=== PATIENT | male | born 1960 | race Caucasian/White ===

== ENCOUNTER 2017-12-23 03:37 | Emergency (ER) | payer BC ==
[~2017-12-23] VITALS: Ht 182.9 cm; Wt 109.3 kg
[2017-12-23 03:55] LABS: BILIRUBIN,URINE NEGATIVE (NEGATIVE); UROBILINOGEN,URINE NORMAL (NEGATIVE)
--- NOTE | 2017-12-23 03:55 | NUR ---
URINE COLLECTED AND TAKEN TO LAB
--- NOTE | 2017-12-23 03:58 | ER.PDOC ---
General Chief Complaint: Flank Pain Stated Complaint: POSS KIDNEY STONE Time seen by MD: 03:57 Source: patient Exam Limitations: no limitations History of Present Illness Initial Comments Left flank pain Timing/Duration: 1-3 hours Severity/Quality: moderate, sharpness Radiation: no radiation Associated Symptoms: denies symptoms Exacerbated by: nothing Relieved By: nothing Allergies: Coded Allergies: No Known Allergies (Unverified , 12/23/17) Vital Signs First Vital Signs Date Time Temp Pulse Resp B/P (MAP) Pulse Ox O2 Delivery O2 Flow Rate FiO2 12/23/17 03:47 97.9 55 16 96 Last Vital Signs Date Time Temp Pulse Resp B/P (MAP) Pulse Ox O2 Delivery O2 Flow Rate FiO2 12/23/17 03:50 97.9 12/23/17 03:47 55 16 96 Past Medical History Medical History: high cholesterol, hypertension, vascular disease Surgical History: knee Social History Smoking: non-smoker Alcohol Use: none Drug Use: none Constitutional: no symptoms reported Respiratory: no symptoms reported Cardiovascular: no symptoms reported Gastrointestinal: see HPI Genitourinary: no symptoms reported All Other Systems: Reviewed and Negative Physical Exam General Appearance: No Apparent Distress, WD/WN HEENT: PERRL/EOMI, Normal ENT Inspection, TMs Normal, Pharynx Normal Neck: Non-Tender, Full Range of Motion, Supple, Normal Inspection Respiratory: chest non-tender, lungs clear, normal breath sounds, no respiratory distress, no accessory muscle use Cardiovascular: Normal Peripheral Pulses, Regular Rate, Rhythm, No Edema, No Gallop, No JVD, No Murmur Gastrointestinal: Normal Bowel Sounds, Non Tender, Soft Back: Normal Inspection, No CVA Tenderness Extremities: Normal Range of Motion, Non-Tender, Normal Inspection, No Pedal Edema, No Calf Tenderness, Normal Capillary Refill, Pelvis Stable Neurologic/Psychiatric: leasing machine tender II-XII NML as Tested, No Motor/Sensory Deficits, Alert, Normal Mood/Affect, Oriented x 3 Skin: Normal Color, Warm/Dry EKG/XRAY/CT/US CT Comments: 4.4 mm left UVJ stone Course Blood Pressure Systolic: 133 Blood Pressure Diastolic: 80 Blood Pressure Mean: 97 Departure Time of Disposition: 04:42 Disposition: 01 HOME, SELF-CARE Impression: Primary Impression: Ureteral calculus, left Additional Impression: UTI (urinary tract infection) Condition: Stable Referrals: PCP,UNKNOWN (PCP) PRIMARY CARE PROVIDER Additional Instructions: Tylenol #3 Cipro Continue Flomax F/U with Dr. Chavarria in 3-4 days if no improvement Duration or Time Spent with Pa: 60 mins Problem Qualifiers Additional Impression: UTI (urinary tract infection) Urinary tract infection type: site unspecified Hematuria presence: with hematuria Qualified Codes: N39.0 - Urinary tract infection, site not specified ; R31.9 - Hematuria, unspecified CASSANDRA GARCIA MD Dec 23, 2017 03:58
[2017-12-23 04:08] LABS: BASOPHIL % 0.5 % (0.0-0.2); EOSINOPHIL # 0.3 10^3/uL (0.0-0.2); EOSINOPHIL % 3.9 % (0.0-5.0); HEMOGLOBIN 13.2 g/dL (13.9-16.3); LYMPHOCYTES # 1.6 10^3/uL (1.0-4.8); LYMPHOCYTES % 21.5 % (24.0-44.0); MEAN CELL HGB 30.6 pg (26-34); MEAN CELL HGB CONCENTRATION 33.3 g/dL (33-37); MEAN CORP VOLUME 91.7 fL (78-100); MEAN PLATELET VOLUME 9.6 fL (7.8-11.0); MONOCYTES # 0.7 10^3/uL (0.3-0.8); MONOCYTES % 9.6 % (5.0-12.0); NEUTROPHIL # 4.8 10^3/uL (1.8-7.7); NEUTROPHILS % 64.2 % (41.0-85.0); WHITE BLOOD CELL 7.5 10^3/uL (4.5-11.0)
--- NOTE | 2017-12-23 04:09 | NUR ---
TO CT PATIENT TO CT VIA WHEELCHAIR WITH TENZIN,RAD
--- NOTE | 2017-12-23 04:12 | NUR ---
BACK FROM CT PATIENT BACK FROM CT, AT BEDSIDE. NO NEEDS VOICED BY PATIENT OR SPOUSE
[2017-12-23 04:19] LABS: APPEARANCE,URINE CLOUDY (CLEAR); UA COLOR YELLOW (YELLOW)
[2017-12-23 04:23] LABS: CALCIUM 8.7 mg/dL (8.4-10.5); CARBON DIOXIDE 25.4 mmol/L (20.0-32)
--- NOTE | 2017-12-23 04:34 | DIREP ---
PROCEDURE:CT ABD/PELVIS WITHOUT CONTRAST TECHNIQUE:Axial cuts were obtained from the dome of the diaphragm to the ischial tuberosities. No intravenous contrast was given. The images were viewed at lung and soft tissue settings. Sagittal and coronal reconstructions are provided. COMPARISON:None. INDICATIONS:Left flank pain FINDINGS: LOWER CHEST:The lung bases are clear. Moderate coronary artery calcifications. LIVER:Normal. BILIARY:Normal. PANCREAS:Normal. SPLEEN:Normal. URINARY TRACT:4.4 mm stone at the left ureterovesical junction almost within the bladder. There is mild left-sided hydroureter and hydronephrosis as compared to the right side. The left kidney is otherwise normal. There is a tiny 2 mm nonobstructing stone in the right mid collecting system series 2, image 70. ADRENALS:Normal. AORTA/VASCULAR:Mild arterial calcifications. RETROPERITONEUM:Normal. BOWEL/MESENTERY:Mild diverticulosis in the sigmoid colon. No evidence of diverticulitis. The appendix is normal. ABDOMINAL WALL:Normal. PELVIS:Normal. BONES:Disc narrowing L3-4. OTHER:Normal. CONCLUSION: 1. 4.4 mm stone at the left ureterovesical junction almost within the bladder. There is mild left-sided hydroureter and hydronephrosis. 2. Tiny nonobstructing stone right renal collecting system. 3. Mild atherosclerosis. Dictated by: Link Shelton M.D. on 12/23/2017 at 04:24 AM
[2017-12-23 04:50] VITALS: BP 132/88
== END 2017-12-23 04:50 | disposition home or self-care (01) ==
LOC: ER 03:37
DX: N39.0 Urinary tract infection, site not specified (principal); R31.9 Hematuria, unspecified; N20.1 Calculus of ureter; E78.00 Pure hypercholesterolemia, unspecified; I10 Essential (primary) hypertension
CPT/HCPCS: 36415; 74176; 80053; 81000; 85025; 85610; 85730; 87086; 99285